=== PATIENT | male | born 1950 ===

== ENCOUNTER 2016-06-17 15:49 | Emergency (ER) | payer SELFPAY ==
[2016-06-17 16:19] VITALS: BMI 22.4
[2016-06-17 16:20] VITALS: RESP 18; O2SAT 99
[2016-06-17] MEDS ORDERED: Sodium Chloride 0.9% 1,000 ML IV ONE (16:24)
[2016-06-17] MEDS ORDERED: Sodium Chloride 0.9% 1,000 ML ONE (16:49)
--- NOTE | 2016-06-17 17:09 | C.PDOC ---
History Of Present Illness 65 year old male with a Hx of hypertension and colon polyps, presents to the ED with c/o dizziness today. Pt notes dizziness that worsen when standing. Pt notes having a headache on the right side of the head but denies fever, chills, nausea, vomiting, diarrhea, or any other complaints. Time Seen by Provider: 06/17/16 16:23 Chief Complaint (Nursing): Dizziness/Lightheaded History Per: Patient History/Exam Limitations: no limitations Onset/Duration Of Symptoms: Hrs Current Symptoms Are (Timing): Still Present Activity At Onset Of Symptoms: Standing Associated Symptoms Preceding Syncopal Episode: Worse With Standing, Vertigo Severity: Mild Past Medical History Reviewed: Historical Data, Nursing Documentation, Vital Signs Vital Signs: Last Vital Signs Temp 97.8 F 06/17/16 16:19 Pulse 78 06/17/16 16:19 Resp 18 06/17/16 16:19 BP 118/71 06/17/16 16:19 Pulse Ox 99 06/17/16 18:10 - Medical History PMH: Anxiety, Benign Prostatic Hyperplasia, Colonic Polyps, Gastritis, HTN, Hypercholesterolemia, Malignancy (colon) Denies: Chronic Kidney Disease Surgical History: Appendectomy, Cholecystectomy (04/02/16), Endoscopy - [facility] Procedures ENDO RECTUM POLYPECTOMY (05/17/13) ENDOSC POLYPECTOMY OF LG INTEST (03/27/14) ESOPHAGOGASTRODUODENOSCOPY [EGD] W/CLOSED BIOPSY (05/17/13) INSPECTION OF GALLBLADDER, PERCUTANEOUS ENDOSCOPIC APPROACH (04/02/16) PERCUTAN NEEDLE BIOPSY OF PROSTATE (09/11/14) RESECTION OF GALLBLADDER, OPEN APPROACH (04/02/16) RESECTION OF TRANSVERSE COLON, OPEN APPROACH (04/02/16) Family History: States: Unknown Family Hx - Social History Hx Tobacco Use: No Hx Alcohol Use: No Hx Substance Use: No - Immunization History Hx Tetanus Toxoid Vaccination: No Hx Influenza Vaccination: Yes Hx Pneumococcal Vaccination: Yes Review Of Systems Except As Marked, All Systems Reviewed And Found Negative. Constitutional: Negative for: Fever, Chills Cardiovascular: Negative for: Chest Pain Respiratory: Negative for: Shortness of Breath Gastrointestinal: Negative for: Nausea, Vomiting, Diarrhea Neurological: Positive for: Headache (Right side of head), Dizziness Physical Exam - Physical Exam Appears: Non-toxic, No Acute Distress Skin: Warm, Dry Head: Atraumatic, Normacephalic Eye(s): bilateral: Normal Inspection Neck: Normal Cardiovascular: Rhythm Regular, No Murmur Respiratory: Normal Breath Sounds, No Rales, No Rhonchi, No Wheezing Gastrointestinal/Abdominal: Soft, No Tenderness Extremity: Normal ROM Neurological/Psych: Oriented x3, Normal Speech, Normal Cognition Gait: Steady ED Course And Treatment - Laboratory Results Result Diagrams: 06/17/16 17:08 06/17/16 17:08 Lab Interpretation: Normal ECG: Interpreted By Me ECG Rhythm: Sinus Rhythm ECG Interpretation: No Acute Changes Rate From EC O2 Sat by Pulse Oximetry: 99 (Room air) Pulse Ox Interpretation: Normal - CT Scan/US No standard instances Other Rad Studies (CT/US): Read By Radiologist, Radiology Report Reviewed CT/US Interpretation: FINDINGS: HEMORRHAGE: No acute parenchymal, subarachnoid or extra-axial hemorrhage. BRAIN: Mild moderate diffuse/ confluent chronic periventricular white matter ischemic changes seen extending peripherally into the deep and subcortical white matter both cerebral hemispheres. The possibility of a small acute infarct cannot be excluded. MRI of the brain with diffusion imaging should be performed if acute infarct suspected clinically. There is a 6 mm elliptical shaped calcification within the left posterior temporoparietal lobe of uncertain etiology. This calcification is nonspecific though could represent old post infectious/ inflammatory or post traumatic or ischemic sequela. Clinical correlation recommended. Mild vascular calcifications are present. VENTRICLES: Mild generalized volume loss. . No evidence of obstructive hydrocephalus. CALVARIUM : No acute calvarial fractures. PARANASAL SINUSES: Partial opacification of a few ethmoid air cells. There is also minor mucosal thickening within the both maxillary antra hands left chamber sphenoid sinus. . MASTOID AIR CELLS: Unremarkable as visualized. No inflammatory changes. OTHER FINDINGS: None. IMPRESSION: . No evidence of acute intracranial hemorrhage. Mild moderate chronic white matter ischemic changes. No evidence of acute intracranial hemorrhage. Followup studies could be performed if further evaluation is required as detailed above. Mild generalized volume loss. Small calcification left posterior temporoparietal region of uncertain etiology ; see above discussion for additional details. Mild mucoperiosteal inflammatory changes within the aforementioned paranasal sinuses. . Progress Note: Treated with IVF NSS, reglan 10 mg IV and meclizine 25 mg PO. On re-evaluation neuro intact, ambulating with steady gait Reassessment Condition: Improved Medical Decision Making Medical Decision Making: Plans: -CT head -EKG -Blood works -Labs -Antivert -Reglan -Meclizine -IV fluids -Reassess and disposition Disposition Counseled Patient/Family Regarding: Studies Performed, Diagnosis, Need For Followup, Rx Given - Disposition Referrals: [facility] [Outside] [facility] [employer] [facility] [Outside] Disposition: HOME/ ROUTINE Disposition Time: 18:15 Condition: STABLE Prescriptions: Meclizine [Antivert] 25 mg PO BID PRN #10 tab PRN Reason: Dizziness Instructions: Vertigo (ED), Dizziness (ED) Print Language: SLOVAK - POA Present On Arrival: None - Clinical Impression Clinical Impression: Dizziness - Scribe Statement The provider has reviewed the documentation as recorded by the Scribe Billy lua All medical record entries made by the Dexibe were at my direction and personally dictated by me. I have reviewed the chart and agree that the record accurately reflects my personal performance of the history, physical exam, medical decision making, and the department course for this patient. I have also personally directed, reviewed, and agree with the discharge instructions and disposition.
--- NOTE | 2016-06-17 17:15 | RAD ---
HISTORY: SOB COMPARISON: Comparison chest 03/05/2016 TECHNIQUE: Chest PA and lateral FINDINGS: LUNGS: No acute consolidation. PLEURA: No significant pleural effusion identified. No pneumothorax apparent. CARDIOVASCULAR: Normal. OSSEOUS STRUCTURES: Mild multilevel degenerative spondylosis of the thoracic spine. Inferior margins of apparent bilateral posterior fixation hardware overlying the lower cervical spine VISUALIZED UPPER ABDOMEN: Metallic clips right upper quadrant of the abdomen consisted prior cholecystectomy. OTHER FINDINGS: None. IMPRESSION: No acute consolidation.
[2016-06-17 17:18] LABS: BASO % 0.2 % (0.0-2.0); EOS % 0.1 % (0.0-4.0); LYMPH # 2.5 K/uL (1.0-4.3); MEAN CELL VOLUME 80.4 fL (80.0-94.0); MEAN CORPUSCULAR HEMOGLOBIN 25.8 pg (27.0-31.0); MEAN PLATELET VOLUME 7.3 fL (7.2-11.7); MONO # 0.5 K/uL (0.0-0.8); MONO % 4.5 % (0.0-10.0); WHITE BLOOD COUNT 11.5 K/uL (4.8-10.8)
[2016-06-17 17:23] LABS: CHLORIDE 97 mmol/L (98-107)
[2016-06-17 17:24] LABS: POTASSIUM 5.2 mmol/L (3.6-5.2); SODIUM 136 mmol/L (132-148)
[2016-06-17 17:26] LABS: ALB/GLOB RATIO 1.2 (1.0-2.1); ALKALINE PHOSPHATASE 80 U/L (38-126); AST/SGOT 49 U/L (17-59); BLOOD UREA NITROGEN 14 mg/dL (9-20); CARBON DIOXIDE 28 mmol/L (22-30); GFR AFRICAN-AMERICAN > 60; TOTAL PROTEIN 7.8 g/dL (6.3-8.3)
[2016-06-17 17:27] LABS: ALT/SGPT 20 U/L (21-72); CALCIUM 8.8 mg/dl (8.6-10.4); GLUCOSE,RANDOM 98 mg/dL (75-110)
--- NOTE | 2016-06-17 17:52 | CT ---
PROCEDURE: CT HEAD WITHOUT CONTRAST. HISTORY: R/O Bleed COMPARISON: None available. TECHNIQUE: Axial computed tomography images were obtained through the head/brain without intravenous contrast. Radiation dose: Total exam DLP = 766.22 mGy-cm. FINDINGS: HEMORRHAGE: No acute parenchymal, subarachnoid or extra-axial hemorrhage. BRAIN: Mild moderate diffuse/confluent chronic periventricular white matter ischemic changes seen extending peripherally into the deep and subcortical white matter both cerebral hemispheres. The possibility of a small acute infarct cannot be excluded. MRI of the brain with diffusion imaging should be performed if acute infarct suspected clinically. There is a 6 mm elliptical shaped calcification within the left posterior temporoparietal lobe of uncertain etiology. This calcification is nonspecific though could represent old post infectious/inflammatory or post traumatic or ischemic sequela. Clinical correlation recommended. Mild vascular calcifications are present. VENTRICLES: Mild generalized volume loss. . No evidence of obstructive hydrocephalus CALVARIUM: No acute calvarial fractures. PARANASAL SINUSES: Partial opacification of a few ethmoid air cells. There is also minor mucosal thickening within the both maxillary antra hands left chamber sphenoid sinus. . MASTOID AIR CELLS: Unremarkable as visualized. No inflammatory changes. OTHER FINDINGS: None. IMPRESSION: . No evidence of acute intracranial hemorrhage. Mild moderate chronic white matter ischemic changes. No evidence of acute intracranial hemorrhage. Followup studies could be performed if further evaluation is required as detailed above Mild generalized volume loss Small calcification left posterior temporoparietal region of uncertain etiology ; see above discussion for additional details. Mild mucoperiosteal inflammatory changes within the aforementioned paranasal sinuses. .
[2016-06-17 18:34] VITALS: BP 126/68; PULSE 70; TEMP 98.9
--- NOTE | 2016-06-18 21:29 | CARD ---
APPROVED REPORT EKG Measurement Heart [id number] <Conclusion> Normal sinus rhythm Inferior infarct, age undetermined Abnormal ECG
== END 2016-06-17 18:52 | disposition home or self-care (01) ==
LOC: C.ER 15:49
DX: R42 Dizziness and giddiness (principal)
CPT/HCPCS: 70450; 71020; 80053; 84484; 85025; 93005; 96361; 96374; 99285; J2765; J7040